=== PATIENT | female | born 1960 | race Caucasian/White ===

== ENCOUNTER 2017-02-13 06:02 | Day surgery (SDC) | payer OTHER ==
[~2017-02-13] VITALS: Ht 177.8 cm; Wt 107.5 kg
[2017-02-13] MEDS ORDERED: CEFAZOLIN 1 GM IVPB PREMIX 50 ML IV ONE (07:00)
[2017-02-13] MEDS ORDERED: HYDROmorphone 2 MG/ML VIAL IVP PRN ×2 (08:15)
[2017-02-13] MEDS ORDERED: ONDANSETRON HCL 4 MG/2 ML VIAL IVP PRN (08:15)
[2017-02-13] MEDS ORDERED: HYDROmorphone 1 MG INJ. 1 MG/ML AMPUL IVP PRN (08:15)
[2017-02-13] MEDS ORDERED: KETOROLAC TROMETHAMINE 30 MG VIAL IVP PRN (08:15)
[2017-02-13] MEDS ORDERED: MEPERIDINE HCL/PF 25 MG/ML DISP.SYRIN IVP PRN ×2 (08:15)
[2017-02-13] MEDS ORDERED: HYDROcodone/ACETAMIN 5-325 MG TAB (NORCO/ VICODIN) PO PRN (09:45)
[2017-02-13] MEDS ORDERED: KETOROLAC TROMETHAMINE 30 MG VIAL IM PRN (09:45)
[2017-02-13] MEDS ORDERED: OXYCODONE/ACETAMINOPHEN 5-325 TABLET PO PRN ×2 (09:45)
[2017-02-13] MEDS: LR 1,000 ML IV SCH (11:00)
[2017-02-13 11:31] VITALS: BP_SYST 129
[2017-02-13] MEDS: OXYCODONE/ACETAMINOPHEN 5-325 TABLET ONE (11:48)
[2017-02-13] MEDS: KETOROLAC TROMETHAMINE 30 MG VIAL ONE (12:47)
[2017-02-13] MEDS ORDERED: SIMETHICONE 80 MG TAB.CHEW PO SCH (13:00)
[2017-02-13] MEDS ORDERED: ONDANSETRON HCL 4 MG/2 ML VIAL ONE (14:00)
[2017-02-13] MEDS ORDERED: KETOROLAC TROMETHAMINE 30 MG VIAL ONE (14:00)
[2017-02-13] MEDS ORDERED: ROCURONIUM BROMIDE 10 MG/ML (ZEMURON) ONE (14:00)
[2017-02-13] MEDS ORDERED: PROPOFOL 200MG/ 20ML VIAL (DIPRIVAN) IV ONE (14:00)
[2017-02-13] MEDS ORDERED: BUPIVACAINE /EPINEPHRINE/PF 0.5% 30 ML VIAL INJ ONE (14:00)
[2017-02-13] MEDS ORDERED: SEVOFLURANE 15 MIN GAS INH ONE (14:00)
[2017-02-13] MEDS ORDERED: fentaNYL CITRATE/PF 100 MCG/2 ML AMP ONE (14:00)
[2017-02-13] MEDS ORDERED: NS IRRIG SOLN 1000 ML IR ONE (14:00)
[2017-02-13] MEDS ORDERED: ROPIVACAINE HCL/PF 5 MG/ML 0.5% 30 ML VIAL ONE (14:00)
[2017-02-13] MEDS ORDERED: MIDAZOLAM HCL 5 MG/5 ML VIAL ONE (14:00)
[2017-02-13] MEDS ORDERED: NS 1000 ML BAG IV ONE (14:00)
[2017-02-13] MEDS ORDERED: LR 1,000 ML IV.SOLN IV ONE (14:00)
[2017-02-13] MEDS ORDERED: FUROSEMIDE 40 MG/4 ML VIAL ONE (14:00)
== END 2017-02-13 14:45 | disposition home or self-care (01) ==
LOC: SDS 06:02
PROVIDERS: ATTEND Specialist
DX: N85.00 Endometrial hyperplasia, unspecified (principal); D25.2 Subserosal leiomyoma of uterus
CPT/HCPCS: 88307; C1727; E0190; J0690; J1170; J1885; J1940; J2250; J2405; J2704; J3010; J3490; J7030; J7120

== ENCOUNTER 2019-05-13 18:50 | Emergency (ER) | payer OTHER ==
[~2019-05-13] VITALS: Ht 177.8 cm; Wt 113.4 kg
[2019-05-13 19:00] VITALS: BP_SYST 132
[2019-05-13 20:25] LABS: BASOPHILS # (AUTO) 0.1 K/uL (0.0-0.2); EOSINOPHILS # (AUTO) 0.3 K/uL (0.0-0.4); HEMATOCRIT 37.9 % (36-48); HEMOGLOBIN 12.9 g/dL (12.0-16.0); LYMPHOCYTES # (AUTO) 1.8 K/uL (1.0-5.5); LYMPHOCYTES % (AUTO) 23.4 % (20.5-51.5); MEAN CORPUSCULAR HEMOGLOBIN 29 pg (27-31); MEAN CORPUSCULAR HGB CONC 34 % (32-36); MEAN CORPUSCULAR VOLUME 86 fL (79.0-98.0); MONOCYTES # (AUTO) 0.5 K/uL (0.0-1.0); MONOCYTES % (AUTO) 6.8 % (1.7-9.3); NEUTROPHILS # (AUTO) 5.1 K/uL (1.8-7.7); NEUTROPHILS % (AUTO) 64.8 % (40.0-70.0); PLATELET COUNT (AUTO) 196 K/uL (130-430); RED BLOOD CELL COUNT(AUTO) 4.41 MIL/uL (4.2-6.2); RED CELL DISTRIBUTION WIDTH 13.7 % (9.0-15.0); WHITE BLOOD COUNT (AUTO) 7.8 K/uL (4.8-10.8)
[2019-05-13 20:27] LABS: CALCIUM 9.5 mg/dL (8.4-11.0); CREATININE 0.73 mg/dL (0.55-1.30); POTASSIUM 4.1 mmol/L (3.5-5.1)
[2019-05-13 20:28] LABS: PROTHROMBIN TIME 9.9 SECS (9.5-12.5)
[2019-05-13 20:41] LABS: ALBUMIN 3.8 g/dL (3.4-4.8); FREE T4 (FREE THYROXINE) 0.6 ng/dL (0.6-1.6); THYROID STIMULATING HORMONE 4.25 uIu/mL (0.34-4.82); TOTAL BILIRUBIN 0.3 mg/dL (0.0-1.0)
[2019-05-13 21:02] LABS: BILIRUBIN,URINE NEGATIVE (NEGATIVE); BLOOD, URINE NEGATIVE (NEGATIVE); CLARITY/URINE CLEAR (CLEAR); COLOR,URINE YELLOW (YELLOW); GLUCOSE,URINE NEGATIVE (NEGATIVE); KETONES,URINE NEGATIVE (NEGATIVE); LEUKOCYTE ESTERASE ,URINE NEGATIVE (NEGATIVE); NITRITE, URINE NEGATIVE (NEGATIVE); PH,URINE 5.5 (5.0-8.0); PROTEIN URINE NEGATIVE (NEGATIVE); UROBILINOGEN,URINE 0.2 (0.2-1.0)
[2019-05-13 21:30] LABS: BARBITURATE, URINE NEGATIVE (NEG <=200); BENZODIAZEPINE, URINE NEGATIVE (NEG <=150); CANNABINOID, URINE NEGATIVE (NEG <=50); COCAINE, URINE NEGATIVE (NEG <=150); METHAMPHETAMINES SCREEN,URINE NEGATIVE (NEG <=500); OPIATE, URINE NEGATIVE (NEG <=100); PHENCYCLIDINE SCREEN,URINE NEGATIVE (NEG <=25); UR TRICYCLIC ANTIDEPRESSANTS NEGATIVE (NEG <=300); URINE AMPHETAMINE NEGATIVE (NEG <=500); URINE METHADONE NEGATIVE (NEG <=200); URINE OXYCODONE SCREEN NEGATIVE (NEG <=100); URINE PROPOXYPHENE SCREEN NEGATIVE (NEG <=300)
[2019-05-13 22:13] VITALS: BP_SYST 138
== END 2019-05-13 22:13 | disposition home or self-care (01) ==
LOC: SED 18:50
DX: R42 Dizziness and giddiness (principal); R51 Headache; R26.89 Other abnormalities of gait and mobility; I10 Essential (primary) hypertension; Z90.710 Acquired absence of both cervix and uterus
CPT/HCPCS: 36415; 70450-TC; 71045; 80053; 80307; 81003; 84439; 84443-TC; 84484; 85025; 85610-TC; 85730-TC; 93005; 99284